=== PATIENT | male | born 2000 | race African-American/Black ===

== ENCOUNTER 2019-07-12 00:01 | Emergency (ER) | payer MEDICAID ==
[~2019-07-12] VITALS: Ht 190.5 cm; Wt 79.5 kg
[2019-07-12 00:02] VITALS: BP 133/79
[2019-07-12] MEDS ORDERED: ONDA4TAB6 PO (02:08)
[2019-07-12] MEDS ORDERED: ONDANSETRON 4 MG ORAL DISINTEGRATING TAB (Q0162 PER 1MG) PO ONE (02:15)
== END 2019-07-12 02:30 | disposition home or self-care (01) ==
LOC: M ED 00:01
DX: R10.9 Unspecified abdominal pain (principal); A05.9 Bacterial foodborne intoxication, unspecified; F17.210 Nicotine dependence, cigarettes, uncomplicated
CPT/HCPCS: 99282; Q0162

== ENCOUNTER 2020-08-18 03:38 | Emergency (ER) | payer MEDICAID ==
[~2020-08-18] VITALS: Ht 185.4 cm; Wt 80.4 kg
[~2020-08-18 03:38] MED LIST: ONDA4TAB6 PO
[2020-08-18] MEDS ORDERED: ACETAMINOPHEN 500 MG TAB PO ONE (06:15)
[2020-08-18] MEDS ORDERED: NS 1,000 ML IV ONE (06:15)
--- NOTE | 2020-08-18 06:56 | REPVR ---
PROCEDURE INFORMATION: Exam: XR Chest Exam date and time: 08/18/2020 6:39 AM Age: 20 years old Clinical indication: Other: Chest pain TECHNIQUE: Imaging protocol: XR of the chest. Views: 2 views. COMPARISON: No relevant prior studies available. FINDINGS: Lungs: Unremarkable. No consolidation. Pleural spaces: Unremarkable. No pleural effusion. No pneumothorax. Heart/Mediastinum: Unremarkable. No cardiomegaly. Bones/joints: Unremarkable. IMPRESSION: No acute infiltrates. Electronically signed by: Babak Moseley On 08/18/2020 06:56:00 AM
[2020-08-18 07:20] LABS: BASO % 0.8 % (0.0-1.0); EOS # 0.2 10^3/uL (0.0-0.5); EOS % 4.2 % (0.0-3.0); HEMATOCRIT 46.8 % (42.0-52.0); HEMOGLOBIN 14.6 g/dl (13.5-17.5); LYMPH # 2.4 10^3/uL (1.5-5.0); LYMPH % 46.7 % (24.0-44.0); MEAN CORPUSCULAR HEMOGLOBIN 25.7 pg (27.0-33.0); MEAN CORPUSCULAR HGB CONC 31.2 g/dl (32.0-36.5); MEAN CORPUSCULAR VOLUME 82.5 fl (80.0-96.0); MONO # 0.5 10^3/uL (0.0-0.8); MONO % 9.2 % (2.0-8.0); NEUTROPHILS % 38.9 % (36.0-66.0); PLATELET COUNT, AUTOMATED 253 10^3/uL (150-450); RED BLOOD COUNT 5.67 10^6/uL (4.30-6.10); WHITE BLOOD COUNT 5.2 10^3/uL (4.0-10.0)
[2020-08-18 07:40] LABS: ALBUMIN 3.5 GM/DL (3.2-5.2); ALT/SGPT 32 U/L (12-78); BILIRUBIN,DIRECT 0.2 MG/DL (0.0-0.2); BILIRUBIN,TOTAL 0.8 MG/DL (0.2-1.0); BLOOD UREA NITROGEN 13 MG/DL (7-18); CARBON DIOXIDE LEVEL 2 MEQ/L (21-32); CHLORIDE LEVEL 110 MEQ/L (98-107); CK-MB VALUE MASS 3.9 NG/ML (<3.6); CPK CREATINE PHOSPHOKINASE 578 U/L (39-308); CREATININE FOR GFR 0.84 MG/DL (0.70-1.30); GLOMERULAR FILTRATION RATE > 60.0 (>60); GLUCOSE, FASTING 92 MG/DL (70-100); MB/CK RELATIVE INDEX 0.67 (< OR =4); POTASSIUM SERUM 4.9 MEQ/L (3.5-5.1); SODIUM LEVEL 139 MEQ/L (136-145); TOTAL PROTEIN 6.8 GM/DL (6.4-8.2)
[2020-08-18 07:41] LABS: LIPASE 128 U/L (73-393); TROPONIN I < 0.02 NG/ML (< 0.10)
[2020-08-18 07:49] LABS: INR 1.29; PROTHROMBIN TIME 16.3 SECONDS (12.5-14.3)
[2020-08-18 07:50] LABS: PARTIAL THROMBOPLASTIN TIME 34.2 SECONDS (24.2-38.5)
[2020-08-18 08:06] LABS: D-DIMER QUANT < 270 ng/ml (<500)
[2020-08-18 08:58] LABS: CK-MB VALUE MASS 3.7 NG/ML (<3.6); CPK CREATINE PHOSPHOKINASE 497 U/L (39-308); MB/CK RELATIVE INDEX 0.74 (< OR =4); TROPONIN I < 0.02 NG/ML (< 0.10)
[2020-08-18 10:07] LABS: AMPHETAMINES LEVEL URINE NEGATIVE (NEGATIVE); BARBITURATES URINE NEGATIVE (NEGATIVE); BENZODIAZEPINES URINE NEGATIVE (NEGATIVE); CANNABINOIDS URINE POSITIVE (NEGATIVE); COCAINE METABOLITE URINE NEGATIVE (NEGATIVE); METHADONE URINE NEGATIVE (NEGATIVE); OPIATES URINE NEGATIVE (NEGATIVE); PHENCYCLIDINE URINE NEGATIVE (NEGATIVE)
[2020-08-18] MEDS ORDERED: LORazepam 2 MG/ML VIAL IV STA (10:10)
[2020-08-18] MEDS ORDERED: LORazepam 2 MG/ML VIAL As Ordered ONE (10:24)
[2020-08-18 11:59] LABS: VENOUS BASE EXCESS -0.3 (-2.0-2.0); VENOUS O2 SATURATION 71.8 % (60.0-80.0); VENOUS PARTIAL PRESSURE CO2 61.9 mmHg (38.0-50.0); VENOUS PARTIAL PRESSURE O2 39.4 mmHg (30.0-50.0); VENOUS PH 7.274 UNITS (7.330-7.430); VENOUS STANDARD HCO3 23.6 MEQ/L; VENOUS TOTAL CO2 29.9 MEQ/L (24.0-28.0)
[2020-08-18 12:37] LABS: ACETAMINOPHEN LEVEL 3.2 UG/ML (10.0-30.0); ETHYL ALCOHOL (ETHANOL) < 0.003 % (0.000-0.010); SALICYLATE LEVEL < 1.7 MG/DL (5.0-30.0)
[2020-08-18 14:00] VITALS: BP 147/100
--- NOTE | 2020-08-18 18:14 | ECGEPIP ---
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
--- NOTE | 2020-08-18 18:15 | ECGEPIP ---
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
== END 2020-08-18 14:22 | disposition home or self-care (01) ==
LOC: M ED 03:38
DX: F41.9 Anxiety disorder, unspecified (principal); R51.9 Headache, unspecified; F17.210 Nicotine dependence, cigarettes, uncomplicated; F12.20 Cannabis dependence, uncomplicated
CPT/HCPCS: 36600; 71046; 80047; 80048; 80076; 80143; 80307; 81001; 82077; 82550; 82553; 82803; 83605; 83690; 84484; 85025; 85379; 85610; 85730; 87798; 93005; 93041; 96361; 96374; 99285; J2060

== ENCOUNTER 2021-01-17 16:24 | Emergency (ER) | payer OTHER, MEDICAID ==
[~2021-01-17] VITALS: Ht 190.5 cm; Wt 76.6 kg
[2021-01-17] MEDS ORDERED: IBUP-1114 PO (16:34)
--- NOTE | 2021-01-17 17:10 | REP ---
INDICATION: trauma. COMPARISON: None. TECHNIQUE: Four views left foot 1st digit FINDINGS: There is no acute fracture or destructive osseous lesion IMPRESSION: There is no acute osseous abnormality. <Electronically signed by Adriano Huffman > 01/17/21 [id number]
[2021-01-17] MEDS ORDERED: IBUPROFEN 800 MG TAB PO ONE (18:25)
[2021-01-17 18:44] VITALS: BP 136/72
== END 2021-01-17 18:45 | disposition home or self-care (01) ==
LOC: M ED 16:24
DX: S97.81XA Crushing injury of right foot, initial encounter (principal); W22.8XXA Striking against or struck by other objects, initial encounter; Y92.89 Other specified places as the place of occurrence of the external cause; Y99.0 Civilian activity done for income or pay

== ENCOUNTER 2021-04-24 17:34 | Emergency (ER) | payer OTHER, MEDICAID ==
[~2021-04-24] VITALS: Ht 190.5 cm; Wt 75.3 kg
[2021-04-24 17:34] VITALS: BP 130/71
[~2021-04-24 17:34] MED LIST changes: +IBUP-1114 PO
== END 2021-04-24 20:08 | disposition left against medical advice (07) ==
LOC: M ED 17:34
DX: Z53.29 Procedure and treatment not carried out because of patient's decision for other reasons (principal)

== ENCOUNTER 2021-05-10 13:44 | Emergency (ER) | payer MEDICAID, OTHER ==
[~2021-05-10] VITALS: Ht 190.5 cm; Wt 68.2 kg
[2021-05-10 15:11] LABS: BASO % 0.9 % (0.0-1.0); EOS % 0.3 % (0.0-3.0); HEMATOCRIT 50.3 % (42.0-52.0); HEMOGLOBIN 15.9 g/dl (13.5-17.5); LYMPH # 1.3 10^3/uL (1.5-5.0); LYMPH % 38.4 % (24.0-44.0); MEAN CORPUSCULAR HEMOGLOBIN 25.7 pg (27.0-33.0); MEAN CORPUSCULAR HGB CONC 31.6 g/dl (32.0-36.5); MEAN CORPUSCULAR VOLUME 81.4 fl (80.0-96.0); MONO # 0.2 10^3/uL (0.0-0.8); MONO % 6.4 % (2.0-8.0); NEUTROPHILS # 1.9 10^3/uL (1.5-8.5); PLATELET COUNT, AUTOMATED 219 10^3/uL (150-450); RED BLOOD COUNT 6.18 10^6/uL (4.30-6.10); WHITE BLOOD COUNT 3.5 10^3/uL (4.0-10.0)
[2021-05-10 15:44] LABS: MB/CK RELATIVE INDEX 0.43 (< OR =4)
[2021-05-10 15:51] LABS: ALT/SGPT 26 U/L (12-78); BILIRUBIN,DIRECT 0.1 MG/DL (0.0-0.2); BILIRUBIN,TOTAL 0.6 MG/DL (0.2-1.0); BLOOD UREA NITROGEN 15 MG/DL (7-18); CALCIUM LEVEL 9.7 MG/DL (8.5-10.1); CARBON DIOXIDE LEVEL 27 MEQ/L (21-32); CHLORIDE LEVEL 109 MEQ/L (98-107); CREATININE FOR GFR 0.99 MG/DL (0.70-1.30); FREE T4 1.03 NG/DL (0.76-1.46); GLOMERULAR FILTRATION RATE > 60.0 (>60); GLUCOSE, FASTING 98 MG/DL (70-100); LIPASE 122 U/L (73-393); NT-PRO BNP 16 PG/ML (<125); POTASSIUM SERUM 4.4 MEQ/L (3.5-5.1); SODIUM LEVEL 142 MEQ/L (136-145); THYROID STIMULATING HORMONE 0.383 uIU/ML (0.358-3.740); TOTAL PROTEIN 7.4 GM/DL (6.4-8.2)
[2021-05-10 16:34] LABS: CK-MB VALUE MASS 1.2 NG/ML (<3.6); MB/CK RELATIVE INDEX 0.5 (< OR =4)
[2021-05-10 17:40] VITALS: BP 129/74
== END 2021-05-10 17:43 | disposition home or self-care (01) ==
LOC: M ED 13:44 → EDBD 13:44 → M ED 17:43
DX: R55 Syncope and collapse (principal); R07.9 Chest pain, unspecified

== ENCOUNTER 2021-10-28 12:19 | Emergency (ER) | payer MEDICAID ==
[~2021-10-28] VITALS: Ht 190.5 cm; Wt 75.6 kg
[2021-10-28] MEDS ORDERED: IBUPROFEN 600MG TAB PO ONE (13:15)
[2021-10-28 14:35] VITALS: BP 123/78
== END 2021-10-28 14:50 | disposition home or self-care (01) ==
LOC: M ED 12:19
DX: M72.2 Plantar fascial fibromatosis (principal); F33.9 Major depressive disorder, recurrent, unspecified; F41.9 Anxiety disorder, unspecified; G43.909 Migraine, unspecified, not intractable, without status migrainosus

== ENCOUNTER 2022-07-04 14:06 | Outpatient (RCR) | payer MEDICAID | END 2022-07-27 | LOC: M PT 14:06 | PROVIDERS: ATTEND Physician Assistant | DX: M25.562 Pain in left knee (principal) ==

== ENCOUNTER → 2022-11-08 | Outpatient (CLI) | payer MEDICAID | LOC: M RAD 17:44 | PROVIDERS: ATTEND Family Medicine | DX: M54.50 Low back pain, unspecified (principal); R20.2 Paresthesia of skin ==

== ENCOUNTER 2023-06-06 16:07 | Emergency (ER) | payer MEDICAID, OTHER ==
[~2023-06-06] VITALS: Ht 190.5 cm; Wt 85.3 kg
[2023-06-06] MEDS ORDERED: IBUP200T46 PO (16:15)
[2023-06-06 17:06] LABS: RSV AMPLIFICATION NEGATIVE (NEGATIVE)
[2023-06-06] MEDS ORDERED: IBUPROFEN 600MG TAB PO ONE (17:35)
[2023-06-06] MEDS: ACETAMINOPHEN 325 MG TAB PO ONE (17:37)
[2023-06-06] MEDS ORDERED: OSEL75CA PO (18:47)
[2023-06-06 18:55] VITALS: BP 143/84; TEMP 97.4; O2SAT 98
== END 2023-06-06 18:56 | disposition home or self-care (01) ==
LOC: M ED 16:07
DX: J09.X9 Influenza due to identified novel influenza A virus with other manifestations (principal); F12.10 Cannabis abuse, uncomplicated; Z79.1 Long term (current) use of non-steroidal anti-inflammatories (NSAID); Z79.899 Other long term (current) drug therapy

== ENCOUNTER 2023-07-25 17:26 | Emergency (ER) | payer OTHER ==
[~2023-07-25] VITALS: Ht 188 cm; Wt 82.4 kg
[~2023-07-25 17:26] MED LIST changes: +IBUP200T46 PO; +OSEL75CA PO
[2023-07-25] MEDS: IBUPROFEN 800 MG TAB PO ONE (20:11)
[2023-07-25] MEDS ORDERED: ONDA4TAB6 PO (20:57)
[2023-07-25] MEDS: ONDANSETRON 4MG ORAL DISINTEGRATING TAB PO ONE (21:06)
[2023-07-25 21:30] VITALS: BP 137/86; TEMP 99.4; O2SAT 98
== END 2023-07-25 21:31 | disposition home or self-care (01) ==
LOC: M ED 17:26
DX: J10.1 Influenza due to other identified influenza virus with other respiratory manifestations (principal); F17.200 Nicotine dependence, unspecified, uncomplicated; Z79.83 Long term (current) use of bisphosphonates